=== PATIENT | female | born 1965 | race Caucasian/White ===

== ENCOUNTER 2018-10-08 09:07 | Emergency (ER) | payer OTHER, SELFPAY ==
[2018-10-08] MEDS ORDERED: NACL 0.9% 1000 ML 1,000 ML IV ONE (10:15)
[2018-10-08] MEDS ORDERED: ZOFRAN IV ONE ×2 (10:15→14:13)
[2018-10-08] MEDS ORDERED: TORADOL IV ONE (10:15)
--- NOTE | 2018-10-08 10:24 | Emergency Department Report ---
ED Female HPI - General Chief complaint: Urogenital-Female Stated complaint: CAN'T URINE/BACK PAIN Time Seen by Provider: 10/08/18 10:12 Source: patient Mode of arrival: Ambulatory Limitations: No Limitations - History of Present Illness Initial comments: 42-year-old female 49 difficulty urinating. Patient reports also having right flank pain that radiates to her pelvic. Patient reports she's had a hysterectomy. Patient complains of urinary urgency frequency and dysuria. Patient reports that she is allergic to Reglan. MD Complaint: dysuria, pelvic pain -: During the night Radiation: suprapubic, R flank Severity: severe Severity scale (0 -10): 10 Quality: sharp, stabbing Consistency: constant Worsens with: urination Are you Now?: No (hysterectomy) Associated Symptoms: dysuria - Related Data Previous Rx's Medication Instructions Recorded Last Taken Type Ketorolac [Toradol] 10 mg PO Q6H PRN #20 tablet 10/08/18 Unknown Rx Nitrofurantoin [place]/M-Cryst 100 mg PO Q12HR #20 capsule 10/08/18 Unknown Rx [Macrobid CAP] traMADol [Ultram 50 MG tab] 50 mg PO Q6HR PRN #12 tablet 10/08/18 Unknown Rx Allergies Allergy/AdvReac Type Severity Reaction Status Date / Time metoclopramide [From Reglan] Allergy Hives Verified 10/08/18 14:12 ED Review of Systems ROS: Stated complaint: CAN'T URINE/BACK PAIN Other details as noted in HPI Comment: All other systems reviewed and negative Genitourinary: urgency, dysuria Musculoskeletal: back pain ED Past Medical Hx - Past Medical History Previous Medical History?: No - Surgical History Past Surgical History?: Yes Additional Surgical History: hysterectomy - Social History Smoking Status: Current Every Day Smoker Substance Use Type: None - Medications Home Medications: Home Medications Medication Instructions Recorded Confirmed Last Taken Type Ketorolac [Toradol] 10 mg PO Q6H PRN #20 tablet 10/08/18 Unknown Rx Nitrofurantoin [place]/M-Cryst 100 mg PO Q12HR #20 capsule 10/08/18 Unknown Rx [Macrobid CAP] traMADol [Ultram 50 MG tab] 50 mg PO Q6HR PRN #12 tablet 10/08/18 Unknown Rx ED Physical Exam - General Limitations: No Limitations General appearance: alert, in no apparent distress - Head Head exam: Present: atraumatic, normocephalic - Eye Eye exam: Present: normal appearance - ENT ENT exam: Present: mucous membranes moist - Neck Neck exam: Present: normal inspection - Respiratory Respiratory exam: Present: normal lung sounds bilaterally. Absent: respiratory distress - Cardiovascular Cardiovascular Exam: Present: regular rate, normal rhythm. Absent: systolic murmur, diastolic murmur, rubs, gallop - GI/Abdominal GI/Abdominal exam: Present: soft, tenderness. Absent: distended - Back Exam Back exam: Present: full ROM, tenderness, CVA tenderness (R) - Neurological Exam Neurological exam: Present: alert, oriented X3 - Psychiatric Psychiatric exam: Present: normal affect, normal mood - Skin Skin exam: Present: warm, dry, intact, normal color. Absent: rash ED Course Vital Signs 10/08/18 10/08/18 10/08/18 09:14 13:25 16:16 Temperature 98.1 F 98.2 F Pulse Rate 73 89 68 Respiratory 20 16 14 Rate Blood Pressure 142/75 Blood Pressure 178/79 101/68 [Left] O2 Sat by Pulse 99 96 98 Oximetry - Reevaluation(s) Reevaluation #1: 10/08/18 13:28 Patient started to have chest pain during her ER visit. Providers ordered EKG aspirin troponin level chest x-ray. Patient be reevaluated. ED Medical Decision Making - Lab Data Result diagrams: 10/08/18 13:36 10/08/18 13:36 - Radiology Data Radiology results: report reviewed Patient: STERLING HARRISON MR# : [id number] : 1965 Acct:[id number] Age/Sex: 53 / F ADM Date: 10/08/18 Loc: ED Attending Dr: Ordering Physician: AMAN GIL Date of Service: 10/08/18 Procedure(s): CT abdomen pelvis wo con Accession Number(s): [id number] cc: AMAN GIL CT ABDOMEN AND PELVIS WITHOUT CONTRAST INDICATION / CLINICAL INFORMATION: right flank pain that radiates to pelvis. TECHNIQUE: Axial CT images were obtained through the abdomen and pelvis without IV contrast. Sagittal and coronal reformatted images. All CT scans at this location are performed using CT dose reduction for ALARA by means of automated exposure control. COMPARISON: None available. FINDINGS: LOWER CHEST: No significant abnormality. LIVER: No significant abnormality. GALLBLADDER: Cholecystectomy changes are identified. BILE DUCTS: No significant abnormality. PANCREAS: No significant abnormality. SPLEEN: No significant abnormality. ADRENALS: No significant abnormality. 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 2 ureters are followed to the right UVJ. It is unclear if the ureters fuse before the UVJ. Minimal right hydronephrosis is identified although no obstructing ureteral stone is confidently identified. There is suggestion of a small right ureterocele measuring 1 cm. The superior moiety of the right kidney appears slightly atrophic and contains 4 or 5 calyceal stones measuring up to 3 mm. A 2 mm calyceal stone is identified at the inferior pole of the lower moiety. LEFT KIDNEY and URETER: A duplicated left renal collecting system is also identified. 2 ureters are also followed to the left UVJ although it is unclear if they fuse. No obvious left ureterocele. A 1.4 cm calyceal stone is noted in the superior left kidney. 2 punctate calyceal stones are identified in the inferior left kidney. No left hydronephrosis. STOMACH and SMALL BOWEL: No significant abnormality. COLON: No significant abnormality. APPENDIX: Not confidently identified, correlate with surgical history PERITONEUM: No free fluid. No free air. No fluid collection. LYMPH NODES: No significant adenopathy. AORTA and ARTERIES: No significant abnormality. IVC and VEINS: No significant abnormality. URINARY BLADDER: No significant abnormality. REPRODUCTIVE ORGANS: A 4.7 cm left ovarian cyst is identified. The uterus and right adnexa are unremarkable. ADDITIONAL FINDINGS: None. SKELETAL SYSTEM: No significant abnormality. 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 There is also bilateral nephrolithiasis as described. Minimal to mild right hydronephrosis is identified although no ureteral stone is identified. There is suggestion of a small ureterocele in the right side of the bladder. 4.7 cm left ovarian cyst. Signer Name: Deepak Mooney Jr, MD Signed: 10/08/2018 12:26 PM Workstation Name: [id number] Transcribed By: TTR Dictated By: DEEPAK MOONEY JR, MD Electronically Authenticated By: DEEPAK MOONEY JR, MD Signed Date/Time: 10/08/18 1226 DD/ 1217 TD/TT: - Medical Decision Making 53 y/o female seen by this provider for urinary issues and flank pain. Patient was treated for uti and evaluated for chest pain. Patient was given IV fluids, morphine, zofran, levequin 500mg iv. She was discharge on toradol, levaquin Critical care attestation.: If time is entered above; I have spent that time in minutes in the direct care of this critically ill patient, excluding procedure time. ED Disposition Clinical Impression: UTI (urinary tract infection), Nephrolithiasis, Chest pain, atypical Disposition: DC- TO HOME OR SELFCARE Is pt being admited?: No Does the pt Need Aspirin: No Condition: Stable Instructions: Chest Pain (ED) Additional Instructions: Please complete antibiotics as prescribed. Pain medication as needed. This very important for you to follow up with urology as well as cardiology I have listed their information below. Prescriptions: Nitrofurantoin [place]/M-Cryst [Macrobid CAP] 100 mg PO Q12HR #20 capsule Ketorolac [Toradol] 10 mg PO Q6H PRN #20 tablet PRN Reason: Pain traMADol [Ultram 50 MG tab] 50 mg PO Q6HR PRN #12 tablet PRN Reason: Pain [facility] - 3-5 Days JOSESITO RUIZ MD [Staff Physician] - 3-5 Days JOSESITO BELCHER MD [Staff Physician] - 3-5 Days Forms: Work/School Release Form(ED)
[2018-10-08 11:54] LABS: Bacteria,Urine 1+ /HPF (Negative); Bilirubin,Urine NEG (Negative); Blood,Urine MOD (Negative); Color,Urine Yellow (Yellow); Mucus,Urine 2+ /HPF; Urobilinogen,Urine < 2.0 mg/dL (<2.0)
[2018-10-08 11:59] LABS: WBC,Urine > 182.0 /HPF (0.0-6.0)
[2018-10-08 12:09] LABS: HCG Qualitative,Urine Negative (Negative)
--- NOTE | 2018-10-08 12:30 | Cat Scan Report ---
CT ABDOMEN AND PELVIS WITHOUT CONTRAST INDICATION / CLINICAL INFORMATION: right flank pain that radiates to pelvis. TECHNIQUE: Axial CT images were obtained through the abdomen and pelvis without IV contrast. Sagittal and houser l reformatted images. All CT scans at this location are performed using CT dose reduction for ALARA b y means of automated exposure control. COMPARISON: None available. FINDINGS: LOWER CHEST: No significant abnormality. LIVER: No significant abnormality. GALLBLADDER: Cholecystectomy changes are identified. BILE DUCTS: No significant abnormality. PANCREAS: No significant abnormality. SPLEEN: No significant abnormality. ADRENALS: No significant abnormality. 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 2 ureters are foll owed to the right UVJ. It is unclear if the ureters fuse before the UVJ. Minimal right hydronephrosis is identified although no obstructing ureteral stone is confidently identified. There is suggestion of a small right ureterocele measuring 1 cm. The superior moiety of the right kidney appears slightly atrophic and contains 4 or 5 calyceal stones measuring up to 3 mm. A 2 mm calyceal stone is identifi ed at the inferior pole of the lower moiety. LEFT KIDNEY and URETER: A duplicated left renal collecting system is also identified. 2 ureters are a lso followed to the left UVJ although it is unclear if they fuse. No obvious left ureterocele. A 1.4 cm calyceal stone is noted in the superior left kidney. 2 punctate calyceal stones are identified in the inferior left kidney. No left hydronephrosis. STOMACH and SMALL BOWEL: No significant abnormality. COLON: No significant abnormality. APPENDIX: Not confidently identified, correlate with surgical history PERITONEUM: No free fluid. No free air. No fluid collection. LYMPH NODES: No significant adenopathy. AORTA and ARTERIES: No significant abnormality. IVC and VEINS: No significant abnormality. URINARY BLADDER: No significant abnormality. REPRODUCTIVE ORGANS: A 4.7 cm left ovarian cyst is identified. The uterus and right adnexa are unrema rkable. ADDITIONAL FINDINGS: None. SKELETAL SYSTEM: No significant abnormality. 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 There is also bilateral nephrolithias is as described. Minimal to mild right hydronephrosis is identified although no ureteral stone is ulysses ntified. There is suggestion of a small ureterocele in the right side of the bladder. 4.7 cm left ovarian cyst. Signer Name: Deepak Mooney Jr, MD Signed: 10/08/2018 12:26 PM Workstation Name: [id number]
[2018-10-08] MEDS ORDERED: MORPHINE IV ONE ×2 (12:33→14:12)
[2018-10-08] MEDS ORDERED: MACROBID PO ONE (12:35)
[2018-10-08] MEDS ORDERED: LEVAQUIN 500MG/100ML 500 MG/100 ML BAG IV ONE (12:41)
[2018-10-08] MEDS ORDERED: ASPIRIN PO ONE (13:28)
[2018-10-08 13:59] LABS: Basophils % (Auto) 0.4 % (0.0-1.8); Eosinophils # (Auto) 0.2 K/mm3 (0.0-0.4); Eosinophils % (Auto) 2.5 % (0.0-4.3); Hematocrit 42.2 % (30.3-42.9); Hemoglobin 14.4 gm/dl (10.1-14.3); Lymphocytes % (Auto) 35.2 % (13.4-35.0); Mean Corpuscular HGB Conc 34 % (30-34); Mean Corpuscular Volume 97 fl (79-97); Monocytes # (Auto) 0.5 K/mm3 (0.0-0.8); Monocytes % (Auto) 6.1 % (0.0-7.3); Platelet Count 156 K/mm3 (140-440); Red Blood Count 4.35 M/mm3 (3.65-5.03); Red Cell Distribution Width 13.4 % (13.2-15.2)
--- NOTE | 2018-10-08 14:04 | XRay Report ---
CHEST 2 VIEWS 1350 INDICATION / CLINICAL INFORMATION: chest pain. COMPARISON: None available. FINDINGS: SUPPORT DEVICES: None. HEART / MEDIASTINUM: Heart size appears within normal limits. LUNGS / PLEURA: No significant pulmonary or pleural abnormality. No pneumothorax. ADDITIONAL FINDINGS: No significant additional findings. IMPRESSION: No significant acute abnormality Signer Name: Mo Garcia MD Signed: 10/08/2018 2:00 PM Workstation Name: [id number]
[2018-10-08 14:08] LABS: INR 1.01 (0.87-1.13); Partial Thromboplastin Time 26.9 Sec. (24.2-36.6)
[2018-10-08 14:29] LABS: Alanine Aminotransferase 30 units/L (7-56); BUN/Creatinine Ratio 24; Blood Urea Nitrogen 12 mg/dL (7-17); Hemolysis Index 11
[2018-10-08 16:18] VITALS: BP 101/68
== END 2018-10-08 16:19 | disposition home or self-care (01) ==
LOC: ED 09:07
DX: N39.0 Urinary tract infection, site not specified (principal); N20.0 Calculus of kidney; R07.89 Other chest pain; F17.200 Nicotine dependence, unspecified, uncomplicated; Z90.710 Acquired absence of both cervix and uterus; Z88.8 Allergy status to other drugs, medicaments and biological substances
CPT/HCPCS: 36415; 71046; 74176; 80053; 81001; 81025; 84484; 85025; 85610; 85730; 93005; 93010; J1885; J1956; J2270; J2405; J7030; 96365; 96375; 96376